=== PATIENT | female | born 1935 | race Caucasian/White ===

== ENCOUNTER 2017-12-12 08:27 | Emergency (ER) | payer OTHER, MEDICARE ==
[2017-12-12] MEDS ORDERED: Sodium Chloride 0.9% 10 ML Syringe FLUSH PRN (08:33)
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
--- NOTE | 2017-12-12 09:25 | CT ---
CT cervical spine Technique: Multiple axial sections were obtained from above the C1 inferiorly to the top of T3. Reconstructed sagittal and coronal images were reviewed. Comparison: No prior cervical spine imaging is available. Findings: Severe disc space narrowing is is noted at C5-C6 and C6-C7. Moderate disc space narrowing noted at C7-T1. Moderate disc space narrowing is noted T2-T3. Mild disc space narrowing is noted at T1-T2 and posteriorly at C2-C3 through C4-C5. Vertebral body heights are maintained. Diffuse anterior osteophytes are seen. Calcification is seen within the posterior annulus at C3-C4 and C5-C6. Diffuse degenerative apophyseal change is seen throughout the cervical spine. No fracture is appreciated within the cervical spine. No abnormal subluxation is appreciated. Impression: 1. Diffuse degenerative change. 2. Nothing acute is appreciated on CT study of the cervical spine. Diagnostic code #2
[2017-12-12] MEDS ORDERED: Labetalol 100 MG/20 ML MDV IVPUSH ONE (09:29)
--- NOTE | 2017-12-12 09:30 | CT ---
Head CT Technique: Multiple axial sections through the brain were obtained. Intravenous contrast was not utilized. Comparison: No previous intracranial imaging. Findings: Extradural hemorrhage is seen on the left side within the left temporal region. This has a slight convex margin and could represent small epidural hematoma with probable subdural component with thickness measuring approximately 7 mm. This causes mild mass effect upon the temporal lobe and slight effacement of the sulci. There is also a small amount of subarachnoid blood being seen to extend into the left sylvian fissure and into the suprasellar cistern. Small amount of blood is seen extending into the right sylvian fissure as well as along the left side of the brainstem. I believe there are several very slight slight areas of hemorrhage also present within the left temporal cortex. Mild midline shift is seen measuring approximately 2.5 mm. Ventricles along with basal cisterns and sulci over convexities are mildly prominent. No other abnormal parenchymal densities are seen. Bone window settings were reviewed which shows no acute calvarial abnormality. Visualized sinuses are clear. Impression: 1. Extra-axial blood within the left temporal region suspicious for small epidural hematoma with possible subdural component. 2. Subarachnoid blood as noted above. 3. Mild midline shift to the right side by about 2.5 mm. Diagnostic code #5
--- NOTE | 2017-12-12 09:59 | CR ---
Chest: Frontal view of the chest was obtained. Comparison: No prior chest x-ray. Heart size is normal. Upper mediastinum is within normal limits. Lungs are clear with no acute parenchymal densities. Degenerative endplate spurring is noted within the spine and within both shoulders. No acute osseous finding is seen on this exam. Impression: 1. Nothing acute is seen on frontal chest x-ray. Diagnostic code #2
== END 2017-12-12 10:10 ==
LOC: JD.ED 08:27
DX: S06.6X0A Traumatic subarachnoid hemorrhage without loss of consciousness, initial encounter (principal); S06.5X9A Traumatic subdural hemorrhage with loss of consciousness of unspecified duration, initial encounter; Z88.0 Allergy status to penicillin; Z88.2 Allergy status to sulfonamides; V89.2XXA Person injured in unspecified motor-vehicle accident, traffic, initial encounter
CPT/HCPCS: 36415; 70450; 71045; 72125; 80053; 83690; 85025; 99285; J7050

== ENCOUNTER 2017-12-20 07:38 | Emergency (ER) | payer OTHER, MEDICARE ==
[2017-12-20] MEDS ORDERED: Ondansetron 4 MG/2 ML SDV IVPUSH ONE (08:05)
[2017-12-20] MEDS ORDERED: Sodium Chloride 0.9% 10 ML Syringe FLUSH PRN (08:05)
[2017-12-20] MEDS ORDERED: Labetalol 100 MG/20 ML MDV IVPUSH ONE (08:07)
[2017-12-20] MEDS ORDERED: HYDROmorphone 0.5 MG/0.5 ML SYRINGE IVPUSH ONE (08:07)
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
--- NOTE | 2017-12-21 08:40 | CR ---
Chest: Portable view of the chest was obtained. Comparison: Prior chest x-ray of 12/12/17. Heart size and mediastinum are within normal limits for portable technique. Lungs are clear. Degenerative change is seen within the shoulders as well as endplate spurring with spine. Impression: 1. Nothing acute is seen on frontal chest x-ray. Diagnostic code #2
--- NOTE | 2017-12-21 08:40 | CT ---
Head CT Technique: Multiple axial sections through the brain were obtained. Intravenous contrast was not utilized. Comparison: Prior head CT study of 12/12/17 is available. Findings: Previous subdural hematoma noted on prior CT exam is no longer seen. Small subdural hygroma is now noted on the left side which is incidental. No acute intracranial hemorrhage is seen. Ventricles along with basal cisterns and sulci over the convexities are mildly prominent. No other abnormal parenchymal densities are seen. Bone window settings were reviewed which show the visualized sinuses to appear clear. No acute calvarial abnormality is seen. Impression: 1. Previous subdural hematoma has resolved. Small subdural hygroma is now seen on the left side which is incidental. 2. No acute intracranial abnormality is seen on current noncontrast head CT study. Diagnostic code #2 I agree with preliminary report from [facility], finalized at 12/20/17, 10:31 AM Central Time
== END 2017-12-20 10:13 | disposition home or self-care (01) ==
LOC: JD.ED 07:38
DX: G44.319 Acute post-traumatic headache, not intractable (principal); I10 Essential (primary) hypertension; I25.2 Old myocardial infarction; Z79.899 Other long term (current) drug therapy; Z88.2 Allergy status to sulfonamides; Z88.0 Allergy status to penicillin
CPT/HCPCS: 36415; 70450; 71045; 80053; 84484; 85025; 93005; 96374; 96375; 99285; J1170; J2405; J7050

== ENCOUNTER 2022-01-23 06:26 | Emergency (ER) | payer MEDICARE, OTHER ==
[2022-01-23] MEDS ORDERED: Sodium Chloride 0.9% 10 ML Syringe FLUSH PRN (06:58)
[2022-01-23] MEDS ORDERED: Sodium Chloride 0.9% 1,000 ML IV SCH (07:00)
[2022-01-23 07:28] LABS: CORONAVIRUS COVID-19 NAA POSITIVE (NEGATIVE)
[2022-01-23 07:40] LABS: ESTIMATED GFR 62 mL/min (>60)
[2022-01-23] MEDS ORDERED: Famotidine 20 MG/2 ML SDV IVPUSH PRN (08:14)
[2022-01-23] MEDS ORDERED: diphenhydrAMINE 50 MG/ML SDV IVPUSH PRN (08:14)
[2022-01-23] MEDS ORDERED: EPINEPHrine 1 MG/ML SDV IM PRN (08:14)
[2022-01-23] MEDS ORDERED: methylPREDNISolone Sodium Succinate 125 MG/2 ML SDV IVPUSH PRN (08:14)
[2022-01-23] MEDS ORDERED: Sodium Chloride 0.9% 10 ML Syringe FLUSH SCH (08:15)
== END 2022-01-23 10:45 | disposition home or self-care (01) ==
LOC: JD.ED 06:26
DX: U07.1 COVID-19 (principal); R53.1 Weakness; I25.2 Old myocardial infarction; I10 Essential (primary) hypertension; Z88.0 Allergy status to penicillin; Z88.2 Allergy status to sulfonamides; Z79.899 Other long term (current) drug therapy; W06.XXXA Fall from bed, initial encounter
CPT/HCPCS: 0241U; 36415; 71045; 80053; 82947; 83735; 84484; 85025; 93005; 96360; 96361; 99285; J3490; J7030; M0222; Q0222

== ENCOUNTER 2024-12-07 08:46 | Emergency (ER) | payer MEDICARE, OTHER ==
[2024-12-07] MEDS ORDERED: Sodium Chloride 0.9% 10 ML Syringe FLUSH PRN (09:27)
[2024-12-07 09:51] LABS: BASOPHILS ABSOLUTE AUTO 0.1 K/mm3 (0.0-0.2); BASOPHILS PERCENT AUTO 0.9 % (0.0-1.0); EOSINOPHILS ABSOLUTE AUTO 0.3 K/mm3 (0.0-0.4); EOSINOPHILS PERCENT AUTO 3.9 % (0.0-6.0); HEMATOCRIT 40.2 % (37.0-47.0); HEMOGLOBIN 13.6 gm/dl (12.0-16.0); IMMATURE GRAN ABSOLUTE AUTO 0.02 K/mm3 (0.00-0.05); IMMATURE GRAN PERCENT AUTO 0.3 % (0.0-0.4); LYMPHOCYTES ABSOLUTE AUTO 1.6 K/mm3 (1.0-4.8); LYMPHOCYTES PERCENT AUTO 24.6 % (24.0-44.0); MEAN CORPUSCULAR HEMOGLOBIN 31.7 pg (28.0-32.0); MEAN CORPUSCULAR HGB CONC 33.8 g/dl (32.0-36.0); MEAN CORPUSCULAR VOLUME 93.7 fl (83.0-99.0); MEAN PLATELET VOLUME 9.2 fl (9.4-12.3); MONOCYTES ABSOLUTE AUTO 0.4 K/mm3 (0.0-0.8); MONOCYTES PERCENT AUTO 6.6 % (0.0-8.0); NEUTROPHILS ABSOLUTE AUTO 4.3 K/mm3 (1.8-7.7); NEUTROPHILS PERCENT AUTO 63.7 % (41.0-71.0); PLATELET COUNT,PLT 262 K/mm3 (150-400); RED BLOOD CELL COUNT 4.29 M/mm3 (4.10-5.30); WHITE BLOOD CELL COUNT,WBC 6.67 K/mm3 (3.9-11.3)
[2024-12-07 10:04] LABS: APPEARANCE,URINE CLEAR (Clear); BILIRUBIN,URINE NEGATIVE (Negative); COLOR,URINE YELLOW (Yellow); GLUCOSE,URINE NEGATIVE (Negative); KETONES,URINE NEGATIVE (Negative); LEUKOCYTE ESTERASE,URINE TRACE (Negative); NITRITE,URINE NEGATIVE (Negative); OCCULT BLOOD,URINE TRACE-LYSED (Negative); PROTEIN,URINE NEGATIVE (Negative); UROBILINOGEN,URINE 0.2 (0.2-1.0)
[2024-12-07 10:17] LABS: BACTERIA,URINE FEW /hpf (FEW); EPITHELIAL CELLS,URINE 0-5 /hpf (0-5); MUCUS,URINE FEW /hpf (FEW); RBC,URINE 0-5 /hpf (0-5); WBC,URINE 0-5 /hpf (0-5)
[2024-12-07 10:35] LABS: A/G RATIO 1.1 (1-2); ALBUMIN 3.9 g/dl (3.4-5.0); ANION GAP 12.7 (5-15); BILIRUBIN TOTAL 0.6 mg/dL (0.2-1.0); CALCIUM 9.7 mg/dL (8.5-10.1); EST CRCL DRUG DOSING (CG) 28.78 mL/min; POTASSIUM,K 3.7 mEq/L (3.5-5.1); PROTEIN TOTAL,TP 7.6 g/dl (6.4-8.2)
[2024-12-07] MEDS: Sodium Chloride 0.9% 10 ML Syringe FLUSH ONE (11:03)
[2024-12-07] MEDS: Iopamidol 612 MG/ML 100 ML Bottle IVPUSH ONE (11:03)
== END 2024-12-07 13:00 | disposition home or self-care (01) ==
LOC: JD.ED 08:46
DX: N95.0 Postmenopausal bleeding (principal); K86.2 Cyst of pancreas; N81.10 Cystocele, unspecified; I25.2 Old myocardial infarction; I10 Essential (primary) hypertension; Z86.73 Personal history of transient ischemic attack (TIA), and cerebral infarction without residual deficits; Z79.899 Other long term (current) drug therapy; Z88.0 Allergy status to penicillin; Z88.2 Allergy status to sulfonamides
CPT/HCPCS: 36415; 74177; 76830; 80053; 81001; 85025; 87086; 99284; Q9967